=== PATIENT | female | born 1975 | race Caucasian/White ===

== ENCOUNTER 2023-12-26 07:02 | Day surgery (SDC) | payer OTHER ==
[2023-12-26] MEDS ORDERED: fentaNYL 50 MCG/ML SDV ONE (07:03)
[2023-12-26] MEDS ORDERED: Midazolam 1 MG/ML 2 ML SDV ONE (07:03)
[2023-12-26] MEDS ORDERED: Propofol 200 MG/20 ML SDV ONE ×3 (07:03→08:54)
[2023-12-26] MEDS: Sodium Chloride 0.9% 1,000 ML IV SCH (07:49)
[2023-12-26] MEDS: Lidocaine 1% w/EPINEPHrine 50 ML, Sodium Bicarbonate 5 MEQ in Sodium Chloride 0.9% 950 ML INJECT SCH (10:16)
[2023-12-26] MEDS: Lidocaine 1% with EPINEPHrine 1:100,000 50 ML MDV ONE (10:22)
[2023-12-26] MEDS: Acetaminophen 500 MG Tab PO ONE (10:29)
== END 2023-12-26 11:20 | disposition home or self-care (01) ==
LOC: JP.SDS 07:02
PROVIDERS: ATTEND Surgery
DX: I83.12 Varicose veins of left lower extremity with inflammation (principal); I83.11 Varicose veins of right lower extremity with inflammation; I83.813 Varicose veins of bilateral lower extremities with pain
CPT/HCPCS: 29581; 36475; 76998; A9270; J1642; J2250; J2704; J3010; J7030; 01930-QZ; J3490